=== PATIENT | male | born 1950 | race Caucasian/White ===

== ENCOUNTER 2021-12-15 21:16 | Emergency (ER) | payer MEDICARE ==
[2021-12-15 22:10] LABS: Hemoglobin 14.6 g/dL (13.5-17.5); Mean Corpuscular HGB CONC 35.9 g/dL (32.0-36.0); Mean Corpuscular Hemoglobin 36.2 pg (27.0-33.0); Platelet Count 177 10x3/uL (150-450); RBC Distribution Width 11.7 % (11.5-14.5); Red Blood Cell (RBC) Count 4.03 10x6/uL (4.32-5.72); White Blood Cell (WBC) Count 5.6 10x3/uL (3.5-10.5)
[2021-12-15 22:13] LABS: ALT (SGPT) 23 U/L (8-55); AST (SGOT) 23 U/L (5-34); Albumin 4.8 g/dL (3.4-4.8); Alkaline Phosphatase 53 U/L (40-110); Anion Gap 16 mmol/L (10-20); BUN (Urea Nitrogen) 15 mg/dL (8.4-25.7); Bilirubin, Total 0.6 mg/dL (0.2-1.2); Calc. Creatinine Clearance 0 mL/min (70-130); Calcium 10.2 mg/dL (7.8-10.44); Carbon Dioxide 27 mmol/L (23-31); Chloride 95 mmol/L (98-107); Estimated GFR 86; Globulin 2.6 g/dL (2.4-3.5); Glucose 110 mg/dL (83-110); Potassium 3.8 mmol/L (3.5-5.1); Protein, Total 7.4 g/dL (5.8-8.1); Sodium 134 mmol/L (136-145)
[2021-12-15 22:21] LABS: MDiff Complete? YES
[2021-12-15 22:53] LABS: Eosinophils 1 % (0-10); Lymphocytes 34 % (21-51); Monocytes 15 % (0-10); Neutrophil 50 % (42-75)
[2021-12-15 22:55] LABS: Platelet Morphology Comment Appears Adequate; RBC Morphology Normal
[2021-12-15] MEDS ORDERED: Aspirin Chewable 81 MG TAB ONE (23:18)
[2021-12-16 00:43] LABS: Troponin I Less than 0.010 ng/mL (< 0.028)
== END 2021-12-16 01:20 | disposition home or self-care (01) ==
LOC: CSHERS 21:16
DX: R07.2 Precordial pain (principal); I10 Essential (primary) hypertension; E78.5 Hyperlipidemia, unspecified
CPT/HCPCS: 71045; 80053; 84484; 85025; 93005